=== PATIENT | male | born 1980 | race Two or more races ===

== ENCOUNTER 2024-07-11 10:01 | Emergency (ER) | payer BC, OTHER ==
[~2024-07-11] VITALS: Ht 167.6 cm; Wt 60.0 kg
[2024-07-11 10:06] VITALS: BP 126/82; PULSE 105; RESP 16; O2SAT 98
== END 2024-07-11 10:30 | disposition left against medical advice (07) ==
LOC: ER 10:01 → EDBD 10:01 → ER 10:30
DX: R07.89 Other chest pain (principal); R06.02 Shortness of breath; Z53.21 Procedure and treatment not carried out due to patient leaving prior to being seen by health care provider